=== PATIENT | male | born 1955 | race Caucasian/White ===

== ENCOUNTER 2016-12-02 03:09 | Emergency (ER) | payer OTHER ==
[~2016-12-02] VITALS: Ht 170.2 cm; Wt 83.8 kg
[~2016-12-02 03:09] MED LIST: CEFTIN500 MG PO; COMPAZINE10 MG PO; Ecotrin PO; FENOFIBRATE54 M1 PO; FLOVENT 11120 INHALA IH; FOLIC ACID1 MG PO; HEPARIN SO5000 UNITS SC; LANSOPRAZOLE30 MG PO; LEVAQUIN750 MG PO; LIDOCAINE700 MG TD; LISINOPRIL10 MG PO; LOVASTATIN20 MG PO; MAGIC MOUTHWASH1 ML MM; MEDROL DOSEPAK4 MG PO; METHOTREXATE2.5 MG PO; OMEPRAZOLE20 MG PO; ONDANSETRON4 MG/2 ML IV; OXYCODONE H5 MG/5 ML PO; OXYCODONE HCL10 MG PO; OXYCONTIN20 MG PO; PERCOCET 10/1 TABLET PO; PREDNISONE20 MG PO; PREDNISONE5 MG PO; PROAIR HFA8.5 GM IH; Proventil,Ventolin H IH; TIZANIDINE HCL4 MG PO; TRAMADOL HCL50 MG PO; Tums,OsCal PO; VENTOLIN HFA18 GM IH; ZESTRIL,PRINIVI10 MG PO; ZITHROMAX500 MG PO; Zithromax PO
[2016-12-02 04:01] LABS: HEMATOCRIT 38.8 % (38.0-50.0); MCH 27.8 PG (29.0-34.0); MEAN PLAT.VOLUME 8.8 uM^3 (9.0-12.4); PLATELET COUNT 303 K/uL (156-360); RBC DIS.WIDTH-CV 13.1 % (11.8-14.6); RBC DIS.WIDTH-SD 41.1 % (39-53); RED BLOOD COUNT 4.46 M/uL (4.00-5.50); WHITE BLOOD COUNT 5.4 K/uL (4.1-10.2)
[2016-12-02 04:14] LABS: CHLORIDE 102 mEq/L (99-109); POTASSIUM 4.4 mEq/L (3.7-5.4); SODIUM 139 mEq/L (136-147)
[2016-12-02 04:16] LABS: GLUCOSE 142 mg/dL (70-99)
[2016-12-02 04:17] LABS: ANION GAP 9 MEQ/L (2-14)
[2016-12-02 04:18] LABS: TOTAL BILIRUBIN 0.4 mg/dL (0.0-1.0)
[2016-12-02 04:19] LABS: ALKALINE PHOSPHATASE 79 IU/L (3-129)
[2016-12-02 04:20] LABS: GFR ESTIMATE (CALCULATED) > 59 mL/min/
[2016-12-02 04:21] LABS: UREA NITROGEN (BUN) 14 mg/dL (9-23)
[2016-12-02 04:23] LABS: TROP-I INTERPRETATION NEGATIVE; TROPONIN-I < 0.01 ng/mL (0.0-0.30)
[2016-12-02 04:25] LABS: D-DIMER ELISA 0.75 mg/L FEU (< 0.57)
[2016-12-02 07:45] LABS: TROP-I INTERPRETATION NEGATIVE; TROPONIN-I < 0.01 ng/mL (0.0-0.30)
[2016-12-02 08:08] VITALS: BP 126/71
== END 2016-12-02 08:10 | disposition home or self-care (01) ==
LOC: EME 03:09
PROVIDERS: Emergency Medicine; Physician Assistant
DX: J44.9 Chronic obstructive pulmonary disease, unspecified (principal); R06.00 Dyspnea, unspecified; E78.5 Hyperlipidemia, unspecified; I10 Essential (primary) hypertension; K21.9 Gastro-esophageal reflux disease without esophagitis; Z85.01 Personal history of malignant neoplasm of esophagus; Z88.6 Allergy status to analgesic agent; Z87.891 Personal history of nicotine dependence
CPT/HCPCS: 71020; 71275; 80053; 83880; 84484; 85027; 85379; 93005; 99281; 99285

== ENCOUNTER 2017-01-23 14:48 | Day surgery (SDC) | payer OTHER ==
[~2017-01-23] VITALS: Ht 170.2 cm; Wt 83.6 kg
[2017-01-23 15:49] LABS: HEMATOCRIT 40.8 % (38.0-50.0); MCH 27.8 PG (29.0-34.0); MCHC 32.4 G/DL (30.0-36.0); MCV 85.9 FL (86-99); MEAN PLAT.VOLUME 9.1 uM^3 (9.0-12.4); PLATELET COUNT 283 K/uL (156-360); RBC DIS.WIDTH-SD 41.1 % (39-53); RED BLOOD COUNT 4.75 M/uL (4.00-5.50); WHITE BLOOD COUNT 11.1 K/uL (4.1-10.2)
[2017-01-23 15:54] LABS: INTER. NORMALIZED RATIO 1.1; PROTHROMBIN TIME 11.6 SEC (10.2-12.9)
[2017-01-23 15:56] LABS: PTT 26.6 SEC (25-37)
[2017-01-23 15:58] LABS: CHLORIDE 101 mEq/L (99-109); POTASSIUM 4.3 mEq/L (3.7-5.4); SODIUM 138 mEq/L (136-147)
[2017-01-23 16:00] LABS: GLUCOSE 150 mg/dL (70-99)
[2017-01-23 16:01] LABS: ANION GAP 12 MEQ/L (2-14)
[2017-01-23 16:03] LABS: POINT-OF-CARE METER ID UU13113800
[2017-01-23 16:04] LABS: GFR ESTIMATE (CALCULATED) > 59 mL/min/
[2017-01-23 16:05] LABS: UREA NITROGEN (BUN) 8 mg/dL (9-23)
[2017-01-23 16:50] VITALS: BP 150/105
== END 2017-01-23 18:30 | disposition home or self-care (01) ==
LOC: EME 14:48 → SDC 16:52
PROVIDERS: Physician Assistant
PROC: 0DJ08ZZ Inspection of Upper Intestinal Tract, Via Natural or Artificial Opening Endoscopic (ICD-10-PCS; principal; 2017-01-23)
DX: R13.10 Dysphagia, unspecified (principal); Z85.01 Personal history of malignant neoplasm of esophagus; Z92.21 Personal history of antineoplastic chemotherapy; Z92.3 Personal history of irradiation; J44.9 Chronic obstructive pulmonary disease, unspecified; K21.9 Gastro-esophageal reflux disease without esophagitis; E78.5 Hyperlipidemia, unspecified; I10 Essential (primary) hypertension; Z87.891 Personal history of nicotine dependence; Z88.6 Allergy status to analgesic agent
CPT/HCPCS: 70360; 71020; 80048; 82948; 85027; 85610; 85730; 99281; 99284; J7040

== ENCOUNTER 2017-03-26 00:21 | Inpatient (IN) | payer OTHER ==
[~2017-03-26] VITALS: Ht 170.2 cm; Wt 83.0 kg
[~2017-03-26 00:21] MED LIST changes: +OXYCONTIN40 MG PO
[2017-03-26] MEDS ORDERED: SYMBICORT60 INHALAT IH (01:12)
[2017-03-26] MEDS ORDERED: PRILOSEC20 MG PO (01:12)
[2017-03-26 01:18] LABS: CARBON DIOXIDE (BICARBONATE) 31.5 MEQ/L (20-31); HEMATOCRIT 37.1 % (38.0-50.0); MCH 28.9 PG (29.0-34.0); MCHC 32.6 G/DL (30.0-36.0); MCV 88.5 FL (86-99); MEAN PLAT.VOLUME 9.3 uM^3 (9.0-12.4); PLATELET COUNT 277 K/uL (156-360); RBC DIS.WIDTH-CV 13.9 % (11.8-14.6); RBC DIS.WIDTH-SD 44.9 % (39-53); RED BLOOD COUNT 4.19 M/uL (4.00-5.50); WHITE BLOOD COUNT 8.3 K/uL (4.1-10.2)
[2017-03-26 01:27] LABS: CHLORIDE 106 mEq/L (99-109); POTASSIUM 3.3 mEq/L (3.7-5.4); SODIUM 143 mEq/L (136-147)
[2017-03-26 01:28] LABS: GLUCOSE 197 mg/dL (70-99)
[2017-03-26 01:30] LABS: ANION GAP 12 MEQ/L (2-14)
[2017-03-26 01:32] LABS: GFR ESTIMATE (CALCULATED) > 59 mL/min/
[2017-03-26 01:33] LABS: UREA NITROGEN (BUN) 7 mg/dL (9-23)
[2017-03-26 01:39] LABS: TROP-I INTERPRETATION NEGATIVE; TROPONIN-I < 0.01 ng/mL (0.0-0.30)
[2017-03-26 05:10] VITALS: BP 151/77
[2017-03-26 07:30] VITALS: BP 123/67
[2017-03-26 11:59] VITALS: BP 107/61
[2017-03-26 16:17] VITALS: BP 118/66
[2017-03-26 19:44] VITALS: BP 106/59
[2017-03-27] VITALS (7 sets, daily range): BP systolic 99–127; BP diastolic 51–68
[2017-03-27 07:00] LABS: HEMATOCRIT 30.6 % (38.0-50.0); MCH 28.8 PG (29.0-34.0); MEAN PLAT.VOLUME 9.6 uM^3 (9.0-12.4); PLATELET COUNT 218 K/uL (156-360); RBC DIS.WIDTH-CV 14.4 % (11.8-14.6); RBC DIS.WIDTH-SD 47.4 % (39-53); WHITE BLOOD COUNT 11.4 K/uL (4.1-10.2)
[2017-03-27 07:41] LABS: ALKALINE PHOSPHATASE 73 IU/L (3-129); ANION GAP 5 MEQ/L (2-14); CHLORIDE 109 MEQ/L (99-109); GFR ESTIMATE (CALCULATED) > 59 mL/min/; GLUCOSE 213 mg/dL (70-99); SAMPLE HEMOLYSIS CHECK 0; SAMPLE ICTERIC CHECK 0; SAMPLE LIPEMIA CHECK 0; SODIUM 141 MEQ/L (136-147); TOTAL BILIRUBIN 0.2 MG/DL (0.0-1.0); UREA NITROGEN (BUN) 14 mg/dL (9-23)
[2017-03-27 07:50] LABS: POTASSIUM 5.1 MEQ/L (3.7-5.4)
[2017-03-27 09:39] LABS: Estimated Average Glucose 160 mg/dL (70-123); HEMOGLOBIN A1c (GLYCOHEMOGLOB) 7.2 % HGB (Below 5.7)
[2017-03-28 03:46] VITALS: BP 135/75
[2017-03-28 07:20] VITALS: BP 130/67
[2017-03-28] MEDS ORDERED: PREDNISONE20 MG PO (11:55)
[2017-03-28] MEDS ORDERED: CEFDINIR300 MG PO (11:55)
== END 2017-03-28 13:15 | disposition home or self-care (01) | DRG 190 ==
LOC: EME → EDBD 00:21 → EDOF 03:07 → ENRESERV 03:08 → CANRESERV 03:08 → EDOF 03:09 → 5SOUTH 03:09 → ENRESERV 03:10 → 5SOUTH 04:50
PROVIDERS: Emergency Medicine; Internal Medicine
DX: J44.0 Chronic obstructive pulmonary disease with (acute) lower respiratory infection (principal); J18.9 Pneumonia, unspecified organism; J96.01 Acute respiratory failure with hypoxia; J98.11 Atelectasis; J44.1 Chronic obstructive pulmonary disease with (acute) exacerbation; I27.20 Pulmonary hypertension, unspecified; E78.5 Hyperlipidemia, unspecified; I10 Essential (primary) hypertension; E87.6 Hypokalemia; G89.29 Other chronic pain; J98.01 Acute bronchospasm; K21.9 Gastro-esophageal reflux disease without esophagitis; R13.10 Dysphagia, unspecified; M54.9 Dorsalgia, unspecified; R00.0 Tachycardia, unspecified; E66.9 Obesity, unspecified; Z85.01 Personal history of malignant neoplasm of esophagus; Z87.891 Personal history of nicotine dependence; Z92.21 Personal history of antineoplastic chemotherapy; Z92.3 Personal history of irradiation; Z88.6 Allergy status to analgesic agent; Z60.2 Problems related to living alone; Z90.2 Acquired absence of lung [part of]; Z68.28 Body mass index [BMI] 28.0-28.9, adult
CPT/HCPCS: 71010; 71020; 80048; 80053; 82803; 83036; 83605; 83880; 84484; 85027; 87040; 90686; 92610 GN; 93005; 93306; 94002; 94640; 94640 76; 94760; 94799; 99281; 99285; J0171; J0696; J1100; J1650; J2405; J2930; J7030; J7050; J7512; J7644

== ENCOUNTER 2017-05-05 10:33 | Emergency (ER) | payer OTHER ==
[~2017-05-05] VITALS: Ht 170.2 cm; Wt 84.8 kg
[~2017-05-05 10:33] MED LIST changes: +CEFDINIR300 MG PO; +PRILOSEC20 MG PO; +SYMBICORT60 INHALAT IH
[2017-05-05] MEDS ORDERED: TIZANIDINE HCL4 M1 PO (12:14)
[2017-05-05 16:36] VITALS: BP 155/88
== END 2017-05-05 16:37 | disposition home or self-care (01) ==
LOC: EME 10:33
DX: T18.128A Food in esophagus causing other injury, initial encounter (principal); X58.XXXA Exposure to other specified factors, initial encounter; K21.9 Gastro-esophageal reflux disease without esophagitis; R06.00 Dyspnea, unspecified; R11.0 Nausea; Z85.01 Personal history of malignant neoplasm of esophagus; Z92.21 Personal history of antineoplastic chemotherapy; Z92.3 Personal history of irradiation; J32.2 Chronic ethmoidal sinusitis; M47.9 Spondylosis, unspecified; E04.1 Nontoxic single thyroid nodule; J44.9 Chronic obstructive pulmonary disease, unspecified; Z87.891 Personal history of nicotine dependence
CPT/HCPCS: 70490; 71020; 71250; 99281; 99283; J2405; J7030